=== PATIENT | female | born 1950 | race Caucasian/White ===

== ENCOUNTER 2019-12-18 11:33 | Emergency (ER) | payer MEDICARE, OTHER ==
[2019-12-18 12:10] LABS: #Eosinphils 0.2 thou/uL (0.0-0.7); #Lymphocytes 1.3 thou/uL (1.20-3.40); #Monocytes 0.5 thou/uL (0.11-0.59); #Neutrophils 2.1 thou/uL (1.40-6.50); %Eosinophils 4.1 % (0.0-10.0); %Lymphocytes 31.3 % (21.0-51.0); %Monocytes 11.6 % (0.0-10.0); Hemoglobin 12.8 g/dL (12.0-16.0); Mean Corpuscular HGB CONC 35.1 g/dL (32.0-36.0); Mean Corpuscular Hemoglobin 34.9 pg (27.0-31.0); Mean Corpuscular Volume 99.4 fL (78.0-98.0); Mean Platelet Volume 7.6 fL (7.4-10.4); Platelet Count 140 thou/uL (130-400); RBC Distribution Width 13.4 % (11.5-14.5); Red Blood Cell (RBC) Count 3.66 mill/uL (4.20-5.40); White Blood Cell (WBC) Count 4.1 thou/uL (4.8-10.8)
[2019-12-18 12:40] LABS: ALT (SGPT) 18 U/L (8-55); AST (SGOT) 30 U/L (5-34); Albumin 3.3 g/dL (3.4-4.8); Alkaline Phosphatase 214 U/L (40-110); Anion Gap 11 mmol/L (10-20); BUN (Urea Nitrogen) 6 mg/dL (9.8-20.1); Calc. Creatinine Clearance 0 mL/min (70-130); Calcium 9.7 mg/dL (7.8-10.44); Carbon Dioxide 27 mmol/L (23-31); Chloride 103 mmol/L (98-107); Estimated GFR-MDRD 54; Globulin 4.4 g/dL (2.4-3.5); Glucose 114 mg/dL (80-115); Protein, Total 7.7 g/dL (6.0-8.3); Sodium 138 mmol/L (136-145)
[2019-12-18 12:42] LABS: Potassium 2.7 mmol/L (3.5-5.1)
[2019-12-18 12:59] LABS: Bilirubin Negative (Negative); Blood, Urine Trace (Negative); Clarity Clear (Clear); Glucose, Urine (Dipstick) Normal (Negative); Leukocyte Negative Leu/uL (Negative); Nitrite Negative (Negative); Protein, Urine (Dipstick) 30 mg/dL (Neg-Trace); RBC/HPF 0-3 HPF (0-3); Squamous Epithelial 0-3 HPF (0-3); Urobilinogen Normal mg/dL (Less than 2); WBC/HPF 0-3 HPF (0-3)
[2019-12-18] MEDS ORDERED: NS 0.9% w/ 40 MEQ KCL 1,000 ML IV SCH (13:00)
[2019-12-18 13:05] LABS: Bacteria/HPF 1+ HPF (None Seen)
== END 2019-12-18 16:36 | disposition home or self-care (01) ==
LOC: ERS 11:33
DX: E87.6 Hypokalemia (principal); E03.9 Hypothyroidism, unspecified; D64.9 Anemia, unspecified; F32.9 Major depressive disorder, single episode, unspecified; N18.3 Chronic kidney disease, stage 3 (moderate); Z79.899 Other long term (current) drug therapy
CPT/HCPCS: 80053; 81003; 81015; 85025; 93005; 96365; 96366; J3480

== ENCOUNTER 2020-02-24 11:26 | Emergency (ER) | payer MEDICARE, OTHER ==
[2020-02-24 12:43] LABS: #Eosinphils 0.1 thou/uL (0.0-0.7); #Lymphocytes 0.9 thou/uL (1.20-3.40); #Monocytes 0.4 thou/uL (0.11-0.59); #Neutrophils 1.9 thou/uL (1.40-6.50); %Basophils 0.9 % (0.0-1.0); %Eosinophils 3.1 % (0.0-10.0); %Lymphocytes 28.1 % (21.0-51.0); %Monocytes 12.1 % (0.0-10.0); %Neutrophils 55.7 % (42.0-75.0); Hemoglobin 13.4 g/dL (12.0-16.0); Mean Corpuscular HGB CONC 34.5 g/dL (32.0-36.0); Mean Corpuscular Hemoglobin 34.9 pg (27.0-31.0); Mean Platelet Volume 7.8 fL (7.4-10.4); Platelet Count 123 thou/uL (130-400); RBC Distribution Width 12.4 % (11.5-14.5); Red Blood Cell (RBC) Count 3.85 mill/uL (4.20-5.40); White Blood Cell (WBC) Count 3.3 thou/uL (4.8-10.8)
[2020-02-24 13:17] LABS: ALT (SGPT) 16 U/L (8-55); AST (SGOT) 32 U/L (5-34); Albumin 3.2 g/dL (3.4-4.8); Alkaline Phosphatase 197 U/L (40-110); Anion Gap 11 mmol/L (10-20); BUN (Urea Nitrogen) 12 mg/dL (9.8-20.1); Bilirubin, Total 0.9 mg/dL (0.2-1.2); Calc. Creatinine Clearance 0 mL/min (70-130); Calcium 9.9 mg/dL (7.8-10.44); Carbon Dioxide 27 mmol/L (23-31); Chloride 102 mmol/L (98-107); Estimated GFR-MDRD 56; Globulin 4.5 g/dL (2.4-3.5); Glucose 95 mg/dL (80-115); Potassium 3.1 mmol/L (3.5-5.1); Protein, Total 7.7 g/dL (6.0-8.3); Sodium 137 mmol/L (136-145)
[2020-02-24 13:23] LABS: Bacteria/HPF None Seen HPF (None Seen); Bilirubin Negative (Negative); Blood, Urine 1+ (Negative); Clarity Clear (Clear); Glucose, Urine (Dipstick) Normal (Negative); Leukocyte Negative Leu/uL (Negative); Nitrite Negative (Negative); Protein, Urine (Dipstick) 20 mg/dL (Neg-Trace); RBC/HPF 0-3 HPF (0-3); Urobilinogen Normal mg/dL (Less than 2); WBC/HPF 0-3 HPF (0-3)
--- NOTE | 2020-02-24 13:28 | RAD ---
RIGHT HIP TWO VIEWS: History: Right groin pain. FINDINGS/IMPRESSION: Mild degenerative changes are present. No fracture, dislocation, or bony destruction is identified. POS: [facility]
== END 2020-02-24 14:24 | disposition home or self-care (01) ==
LOC: ERS 11:26
DX: B37.2 Candidiasis of skin and nail (principal); R53.1 Weakness; E03.9 Hypothyroidism, unspecified; N18.3 Chronic kidney disease, stage 3 (moderate); I12.9 Hypertensive chronic kidney disease with stage 1 through stage 4 chronic kidney disease, or unspecified chronic kidney disease; D64.9 Anemia, unspecified; F32.9 Major depressive disorder, single episode, unspecified; Z79.899 Other long term (current) drug therapy
CPT/HCPCS: 36416; 80053; 81003; 81015; 83880; 85025; 87086; 96360

== ENCOUNTER 2020-04-03 09:06 | Outpatient (CLI) | payer MEDICARE, OTHER ==
--- NOTE | 2020-04-03 11:35 | ULT ---
ULTRASOUND ABDOMEN DOPPLER: HISTORY: Cirrhosis. COMPARISON: None. FINDINGS: Real-time, seth scale, color Doppler, and spectral analysis of the liver was performed. The visualized portions of the aorta are unremarkable. There is lobular contour of the liver. The h epatic veins are patent as well as the portal veins with normal phases. The liver measured 18 cm in length. The main portal vein is patent with antegrade flow. Hepatic artery is patent. The common bile duct is normal. Gallbladder wall thickness is normal. No cholelithiasis. Mildly nodular contour of the liver. The spleen is enlarged measuring 15.5 cm in length. The splenic artery and vein are patent. IMPRESSION: 1. Increased echogenicity of the liver making penetration difficult likely due to underlying hepatoc ellular disease or cirrhosis. Evaluation for mass is limited. 2. Marked splenomegaly. POS: HOME
== END 2020-04-03 09:07 | disposition home or self-care (01) ==
LOC: BICULT 09:06
PROVIDERS: ATTEND Internal Medicine Gastroenterology
DX: K74.60 Unspecified cirrhosis of liver (principal); R18.8 Other ascites; C49.A3 Gastrointestinal stromal tumor of small intestine; R16.1 Splenomegaly, not elsewhere classified; R93.2 Abnormal findings on diagnostic imaging of liver and biliary tract
CPT/HCPCS: 76705

== ENCOUNTER 2020-09-29 09:27 | Outpatient (CLI) | payer MEDICARE, OTHER ==
--- NOTE | 2020-09-29 10:55 | ULT ---
HEPATIC ULTRASOUND WITH DOPPLER EVALUATION: INDICATION: History of cirrhosis and ascites. TECHNIQUE: Novak scale, color Doppler, and spectral Doppler images were obtained. Overlying bowel gas and patien t's body habitus with limited mobility with limited image detail, particularly of the hepatic Doppler evaluation. FINDINGS: There is cirrhotic morphology of the liver. Visualized aspect of the liver demonstrated no definite focal hepatic lesion. The spleen is enlarged measuring 17.5 cm. The pancreas was largely obscured. Visualized aspects of the IVC appear within normal limits. The aorta was not well interrogated due to bowel gas, but there was antegrade flow present within the proximal aspect of the visualized aorta . The hepatic veins and main portal vein were largely obscured. Visualized aspects of the right and left portal vein in addition to the main hepatic artery appear within normal limits. Hepatopetal fl ow was seen within the visualized portions of the more proximal main portal vein. Common bile duct m easured 5.2 mm. The gallbladder was within normal limits. No sonographic Tello's sign is reported. The splenic artery and vein appear to have appropriate flow. IMPRESSION: 1. Findings of cirrhosis with portal hypertension. 2. Limited hepatic Doppler evaluation due to overlying bowel gas. Visualized hepatic vascular segme nts appear to have appropriate flow. 3. No large amount of ascites demonstrated. POS: [facility]
== END 2020-09-29 09:28 | disposition home or self-care (01) ==
LOC: BICULT 09:27
PROVIDERS: ATTEND Physician Assistant Medical
DX: K74.60 Unspecified cirrhosis of liver (principal); R18.8 Other ascites; K76.6 Portal hypertension
CPT/HCPCS: 76705

== ENCOUNTER 2020-11-10 09:35 | Outpatient (CLI) | payer MEDICARE, OTHER ==
--- NOTE | 2020-11-10 11:36 | MRI ---
MRI Abdomen W WO Con History: Cholestasis Comparison: CT abdomen and pelvis 2014 Findings: No hepatic steatosis. Slightly lobular contour of the liver. The gallbladder is distended with low-grade layering sludge. No intrahepatic or extra hepatic biliary dilatation. The portal vein is patent. Hepatic veins are patent. No abnormal enhancing hepatic mass. Small cyst hepatic segment 8 near the dome measures up to 8 mm. The spleen is enlarged measuring 16 cm in length. Low-grade S-shaped scoliosis thoracolumbar spine. No dilatation of the main pancreatic duct. Very small 2 to 3 mm cyst of the pancreatic body without c ommunication with the main pancreatic duct. No hydronephrosis. No abnormal renal enhancing mass. Multiple small benign cysts right kidney. With a mass effect of the left kidney appeared the spleen. Prior ventral hernia repair. Normal proximal small bowel rotation. No retroperitoneal periaortic josefa opathy. Background bone marrow signal is normal. Impression: 1. No intrahepatic or extrahepatic biliary dilatation. No evidence for pancreaticobiliary maljunction or cholangiocarcinoma. 2. Macronodular hepatic cirrhosis, splenomegaly and portal hypertension. 3. Gallbladder hydrops.
--- NOTE | 2020-11-10 12:09 | RAD ---
RADIOGRAPH LUMBAR SPINE 3 VIEWS: DATE: RADIOGRAPH LUMBAR SPINE 3 VIEWS: DATE: 11/10/2020 HISTORY: 70-year-old female with low back pain COMPARISON: None available FINDINGS: 5 lumbar-type vertebrae. Diffuse osteopenia. Levoscoliosis with apex of curvature at L1-2. Compression fracture of L2 vertebral body with depression of superior endplate and anterior wedging d eformity. The age of this is uncertain, but it was not present on a CT of abdomen and pelvis of 05/16/2014. Maximum anterior loss of height approximately 40% There is mild bony retropulsion of superior endplate qualifying this as a burst fracture. Moderate disc space narrowing at L5-S1. Focal angulation of the anterior cortical surface at lower sacrum as seen on lateral view. Diffuse osteopenia. IMPRESSION: 1) compression fracture/burst fracture of L2 vertebra, of indeterminate age. 2) focal mild deformity at lower sacrum, which may or may not be a fracture. 3) a noncontrast lumbar spine MRI would be able to distinguish between chronic versus acute or subacu te fracture of L2. 4) likewise, a noncontrast MRI of the sacrum and coccyx may be useful, if the patient is having sacro coccygeal symptoms.
[2020-11-10] MEDS ORDERED: Magnevist 469MG/ML 20 ML VIAL ONE (13:59)
== END 2020-11-10 09:36 | disposition home or self-care (01) ==
LOC: BICMRI 09:35
PROVIDERS: ATTEND Internal Medicine Gastroenterology
DX: M54.5 Low back pain (principal); K74.60 Unspecified cirrhosis of liver; K83.1 Obstruction of bile duct; M43.8X8 Other specified deforming dorsopathies, sacral and sacrococcygeal region; R16.1 Splenomegaly, not elsewhere classified; K76.6 Portal hypertension
CPT/HCPCS: 72100; 74183; 82565

== ENCOUNTER 2021-01-08 09:37 | Outpatient (CLI) | payer MEDICARE, OTHER | END 2021-01-08 09:38 | disposition home or self-care (01) | LOC: NM 09:37 | PROVIDERS: ATTEND Internal Medicine Gastroenterology | DX: R74.8 Abnormal levels of other serum enzymes (principal) | CPT/HCPCS: 78306; A9503 ==

== ENCOUNTER 2021-03-17 10:30 | Outpatient (CLI) | payer MEDICARE, OTHER | END 2021-03-17 10:31 | disposition home or self-care (01) | LOC: BICULT 10:30 | PROVIDERS: ATTEND Internal Medicine Gastroenterology | DX: K74.60 Unspecified cirrhosis of liver (principal); R74.8 Abnormal levels of other serum enzymes; K21.9 Gastro-esophageal reflux disease without esophagitis; C49.A3 Gastrointestinal stromal tumor of small intestine; K76.6 Portal hypertension; Z86.010 Personal history of colon polyps | CPT/HCPCS: 76705 ==

== ENCOUNTER 2022-09-19 11:41 | Outpatient (CLI) | payer MEDICARE, OTHER | END 2022-09-19 11:42 | disposition home or self-care (01) | LOC: CT 11:41 | PROVIDERS: ATTEND Physician Assistant Medical | DX: K74.60 Unspecified cirrhosis of liver (principal); D50.9 Iron deficiency anemia, unspecified; E03.9 Hypothyroidism, unspecified; B35.1 Tinea unguium; R16.1 Splenomegaly, not elsewhere classified | CPT/HCPCS: 74170; 82565 ==

== ENCOUNTER 2023-08-08 11:58 | Outpatient (CLI) | payer MEDICARE, OTHER | END 2023-08-08 11:59 | disposition home or self-care (01) | LOC: BICMAMMO 11:58 | PROVIDERS: ATTEND Physician Assistant | DX: Z13.820 Encounter for screening for osteoporosis (principal); M81.0 Age-related osteoporosis without current pathological fracture | CPT/HCPCS: 77080 ==

== ENCOUNTER 2024-01-25 11:27 | Emergency (ER) | payer MEDICARE, OTHER ==
[2024-01-25 12:14] LABS: Bacteria/HPF None Seen HPF (None Seen); Bilirubin Negative (Negative); Blood, Urine Negative (Negative); CAUTI Indications for Culture Dysuria,urgency,freq; Clarity Clear (Clear); Glucose, Urine (Dipstick) Normal (Negative); Ketone, Urine Negative (Negative); Leukocyte Negative Leu/uL (Negative); Nitrite Negative (Negative); Protein, Urine (Dipstick) Negative (Neg-Trace); RBC/HPF 0-3 HPF (0-3); Specific Gravity, Urine 1.005 (1.002-1.036); Squamous Epithelial 0-3 HPF (0-3); Urobilinogen Normal mg/dL (Less than 2); WBC/HPF 0-3 HPF (0-3); pH, Urine 5.5 (5.0-9.0)
[2024-01-25 12:15] LABS: Urine Culture Reflex No No
[2024-01-25] MEDS ORDERED: Iopamidol 370 76% 100 ML VIAL ONE (12:32)
[2024-01-25 12:48] LABS: #Basophils Less than 0.03 10x3/uL (0.0-0.2); %Basophils 0.5 % (0.0-1.0); %Eosinophils 0.8 % (0.0-10.0); %Lymphocytes 29.4 % (21.0-51.0); %Monocytes 7.4 % (0.0-10.0); %Neutrophils 61.6 % (42.0-75.0); Hematocrit 37.1 % (36.0-47.0); Hemoglobin 13.2 g/dL (12.0-16.0); Mean Corpuscular HGB CONC 35.6 g/dL (32.0-36.0); Mean Corpuscular Hemoglobin 35.6 pg (27.0-31.0); Mean Platelet Volume 9.6 fL (7.4-10.4); Platelet Count 101 10x3/uL (130-400); RBC Distribution Width 13.7 % (11.5-14.5); Red Blood Cell (RBC) Count 3.71 mill/uL (4.20-5.40)
[2024-01-25 12:55] LABS: ALT (SGPT) 21 U/L (8-55); AST (SGOT) 22 U/L (5-34); Albumin 4.6 g/dL (3.4-4.8); Alkaline Phosphatase 72 U/L (40-110); Anion Gap 13 mmol/L (10-20); BUN (Urea Nitrogen) 26 mg/dL (9.8-20.1); Bilirubin, Total 1.2 mg/dL (0.2-1.2); Calc. Creatinine Clearance 0 mL/min (70-130); Calcium 10.2 mg/dL (7.8-10.44); Carbon Dioxide 20 mmol/L (23-31); Chloride 100 mmol/L (98-107); Estimated GFR 46; Globulin 3.1 g/dL (2.4-3.5); Glucose 106 mg/dL (83-110); Lipase 53 U/L (8-78); Potassium 4.3 mmol/L (3.5-5.1); Protein, Total 7.7 g/dL (5.8-8.1); Sodium 129 mmol/L (136-145)
== END 2024-01-25 14:50 | disposition home or self-care (01) ==
LOC: ERS 11:27
DX: R30.0 Dysuria (principal); I12.9 Hypertensive chronic kidney disease with stage 1 through stage 4 chronic kidney disease, or unspecified chronic kidney disease; N18.30 Chronic kidney disease, stage 3 unspecified; E11.22 Type 2 diabetes mellitus with diabetic chronic kidney disease; Z79.899 Other long term (current) drug therapy
CPT/HCPCS: 36415; 74177; 80053; 81001; 83690; 85025; 87086; Q9967

== ENCOUNTER 2025-09-02 07:12 | Outpatient (CLI) | payer MEDICARE, OTHER | END 2025-09-02 07:13 | disposition home or self-care (01) | LOC: ULT 07:12 | PROVIDERS: ATTEND Internal Medicine Gastroenterology | DX: C49.A0 Gastrointestinal stromal tumor, unspecified site (principal); K74.60 Unspecified cirrhosis of liver; K43.9 Ventral hernia without obstruction or gangrene; N18.9 Chronic kidney disease, unspecified; R93.2 Abnormal findings on diagnostic imaging of liver and biliary tract | CPT/HCPCS: 76705 ==